=== PATIENT | female | born 1980 | race African-American/Black ===

== ENCOUNTER 2019-12-12 09:18 | Emergency (ER) | payer MEDICAID ==
[~2019-12-12] VITALS: Ht 160 cm; Wt 113.4 kg
[2019-12-12] VITALS (7 sets, daily range): BP systolic 129–150; BP diastolic 79–92
[~2019-12-12 09:18] MED LIST: BACTRIM DS TAB1 EAC1 ORAL; BUSPAR10 MG ORAL; KEFLEX500 MG ORAL
[2019-12-12] MEDS ORDERED: Haloperidol 5mg/ml Inj IM ONE (09:30)
[2019-12-12] MEDS ORDERED: DiphenhydrAMINE 50mg/ml Inj IM ONE (09:30)
--- NOTE | 2019-12-12 09:32 | Emergency Room Report ---
History of Present Illness General Chief Complaint: Behavioral Complaint Source: Patient Present Illness HPI Patient presents emergency department today with complaint of altered mental status. Review of medical records show that this is happened to the patient in the past secondary to drug abuse. Apparently patient has had some life stressors this year and as result has not been acting well. Patient was noted to be closing herself in her room with bizarre behavior and possibility of paranoia and hallucinations. Police was contacted to evaluate patient and they placed the patient on [id number] and brought the patient here for further evaluation. On arrival patient was combative apparently patient was agitated and seeing was given Ativan for sedation. Patient is much more cooperative with police presence but is still appeared to be agitated. No other complaints are noted. Symptoms noted to be moderate to severe. Patient is refusing to provide any history. All the history was obtained from the paramedics and the police officers. No other modifying factors. No other associated signs and symptoms. No other complaints were noted. 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 Reviewed Nursing Documentation: PMH: Agreed; PSxH: Agreed Nursing Documentation-PMH Past Medical History: No Stated History Review of Systems All Other Systems: negative except mentioned in HPI - Unable to fully assess because patient is refusing answer questions. Physical Exam Vital Signs Date Time Temp Pulse Resp B/P (MAP) Pulse Ox O2 Delivery O2 Flow Rate FiO2 12/12/19 09:14 97.7 88 17 150/90 (110) 98 Room Air Sp02 EP Interpretation: reviewed, normal General Appearance: alert, non-toxic, obese, other - Not cooperative and agitated. Head: atraumatic Eyes: bilateral eye normal inspection ENT: normal ENT inspection, hearing grossly normal, normal voice Neck: normal inspection, full range of motion, supple Respiratory: normal inspection, lungs clear, normal breath sounds, no respiratory distress, no retraction, no wheezing Cardiovascular #1: regular rate, rhythm, no edema Gastrointestinal: normal inspection, normal bowel sounds, non tender, soft, no guarding, no hernia Genitourinary: no CVA tenderness Musculoskeletal: back normal, normal range of motion, other - Left lower extremity chronic venous stasis ulcer. Neurologic: alert, responsive, speech normal, normal inspection Psychiatric: depressed affect, other - Poor judgment Skin: other - Left lower extremity chronic venous stasis ulcer Procedures Critical Care Time Critical Care Time Patient had a critical medical condition which untreated could potentially result in life or limb threatening injury. Total critical care time excluding procedures was approximately 45 minutes. Medical Decision Making Diagnostic Impression: Primary Impression: Psychosis ER Course Patient presents emergency department today with abnormal behavior. Differential considerations include electrolyte abnormality, drug abuse, alcohol abuse, worsening psychosis, suicidal ideation, worsening depression just to name a few. Given the severity of the patient's presentation I felt this is a highly complex patient. This patient required extensive workup. Patient laboratory workup was negative. Patient was evaluated by the pet team. Patient is medically cleared. Patient require admission to a psychiatric unit for treatment of her for condition. Because of patient's agitation patient require sedation and control of her acute psychosis. Patient was given Haldol and Benadryl with significant improvement symptoms. Patient had received Versed prior to arrival by paramedics. Labs Test 12/12/19 10:00 12/12/19 12:40 White Blood Count 8.9 K/UL (4.8-10.8) Red Blood Count 4.73 M/UL (4.20-5.40) Hemoglobin 12.2 G/DL (12.0-16.0) Hematocrit 37.3 % (37.0-47.0) Mean Corpuscular Volume 79 FL (80-99) Mean Corpuscular Hemoglobin 25.9 PG (27.0-31.0) Mean Corpuscular Hemoglobin Concent 32.7 G/DL (32.0-36.0) Red Cell Distribution Width 13.8 % (11.6-14.8) Platelet Count 272 K/UL (150-450) Mean Platelet Volume 5.3 FL (6.5-10.1) Neutrophils (%) (Auto) 74.6 % (45.0-75.0) Lymphocytes (%) (Auto) 14.5 % (20.0-45.0) Monocytes (%) (Auto) 6.0 % (1.0-10.0) Eosinophils (%) (Auto) 3.4 % (0.0-3.0) Basophils (%) (Auto) 1.6 % (0.0-2.0) Sodium Level 138 MMOL/L (136-145) Potassium Level 3.6 MMOL/L (3.5-5.1) Chloride Level 103 MMOL/L (98-107) Carbon Dioxide Level 29 MMOL/L (21-32) Anion Gap 6 mmol/L (5-15) Blood Urea Nitrogen 11 mg/dL (7-18) Creatinine 1.1 MG/DL (0.55-1.30) Estimat Glomerular Filtration Rate > 60 mL/min (>60) Glucose Level 83 MG/DL (74-106) Calcium Level 9.3 MG/DL (8.5-10.1) Total Bilirubin 0.4 MG/DL (0.2-1.0) Aspartate Amino Transf (AST/SGOT) 20 U/L (15-37) Alanine Aminotransferase (ALT/SGPT) 17 U/L (12-78) Alkaline Phosphatase 72 U/L (46-116) Total Protein 7.9 G/DL (6.4-8.2) Albumin 3.3 G/DL (3.4-5.0) Globulin 4.6 g/dL Albumin/Globulin Ratio 0.7 (1.0-2.7) Salicylates Level 2.1 ug/mL (2.8-20) Acetaminophen Level < 3 MCG/ML (10-30) Serum Alcohol < 2 mg/dL Urine Color Yellow Urine Appearance Slightly cloudy Urine pH 6 (4.5-8.0) Urine Specific [place] 1.025 (1.005-1.035) Urine Protein 1+ (NEGATIVE) Urine Glucose (UA) Negative (NEGATIVE) Urine Ketones 3+ (NEGATIVE) Urine Blood 2+ (NEGATIVE) Urine Nitrite Negative (NEGATIVE) Urine Bilirubin Negative (NEGATIVE) Urine Urobilinogen Normal MG/DL (0.0-1.0) Urine Leukocyte Esterase 1+ (NEGATIVE) Urine RBC 2-4 /HPF (0 - 2) Urine WBC 2-4 /HPF (0 - 2) Urine Squamous Epithelial Cells Moderate /LPF (NONE/OCC) Urine Bacteria Few /HPF (NONE) Urine Mucus Few /LPF (NONE/OCC) Urine HCG, Qualitative Negative (NEGATIVE) Urine Opiates Screen Negative (NEGATIVE) Urine Barbiturates Screen Negative (NEGATIVE) Phencyclidine (PCP) Screen Negative (NEGATIVE) Urine Amphetamines Screen Positive (NEGATIVE) Urine Benzodiazepines Screen Positive (NEGATIVE) Urine Cocaine Screen Negative (NEGATIVE) Urine Marijuana (THC) Screen Negative (NEGATIVE) Last Vital Signs Date Time Temp Pulse Resp B/P (MAP) Pulse Ox O2 Delivery O2 Flow Rate FiO2 12/12/19 09:14 97.7 88 17 150/90 (110) 98 Room Air Status: improved Disposition: PSYCH HOSP/UNIT Condition: Serious Jin aJson MD Dec 12, 2019 09:32
[2019-12-12 10:28] LABS: BASOPHILS % (AUTO) 1.6 % (0.0-2.0); EOSINOPHILS % (AUTO) 3.4 % (0.0-3.0); HEMATOCRIT 37.3 % (37.0-47.0); HEMOGLOBIN 12.2 G/DL (12.0-16.0); LYMPHOCYTES % (AUTO) 14.5 % (20.0-45.0); MEAN CORPUSCULAR VOLUME 79 FL (80-99); NEUTROPHILS % (AUTO) 74.6 % (45.0-75.0); PLATELET COUNT 272 K/UL (150-450); RED BLOOD COUNT 4.73 M/UL (4.20-5.40); RED CELL DISTRIBUTION WIDTH 13.8 % (11.6-14.8); WHITE BLOOD COUNT 8.9 K/UL (4.8-10.8)
[2019-12-12 11:01] LABS: ANION GAP 6 mmol/L (5-15); BLOOD UREA NITROGEN 11 mg/dL (7-18); CALCIUM 9.3 MG/DL (8.5-10.1); CARBON DIOXIDE 29 MMOL/L (21-32); CHLORIDE 103 MMOL/L (98-107); CREATININE 1.1 MG/DL (0.55-1.30); POTASSIUM 3.6 MMOL/L (3.5-5.1); SODIUM 138 MMOL/L (136-145)
[2019-12-12 11:07] LABS: ALANINE AMINOTRANSFERASE 17 U/L (12-78); ALBUMIN 3.3 G/DL (3.4-5.0); ALBUMIN/GLOBULIN RATIO 0.7 (1.0-2.7); ALKALINE PHOSPHATASE 72 U/L (46-116); ASPARTATE AMINO TRANSFERASE 20 U/L (15-37); BILIRUBIN,TOTAL 0.4 MG/DL (0.2-1.0)
[2019-12-12 12:48] LABS: APPEARANCE,URINE SLIGHTLY CLOUDY; BILIRUBIN, URINE NEGATIVE (NEGATIVE); GLUCOSE, URINE (UA) NEGATIVE (NEGATIVE); KETONES,URINE 3+ (NEGATIVE); LEUKOCYTE ESTERASE ,URINE 1+ (NEGATIVE); NITRITE,URINE NEGATIVE (NEGATIVE); PH,URINE 6 (4.5-8.0); PROTEIN,URINE 1+ (NEGATIVE); UROBILINOGEN,URINE NORMAL MG/DL (0.0-1.0)
[2019-12-12 12:50] LABS: COLOR,URINE YELLOW
[2019-12-12] MEDS ORDERED: HYDROcodone/Acetamin 5/325 tab ORAL ONE (20:00)
[2019-12-13 01:26] VITALS: BP 139/89
[2019-12-13 03:40] VITALS: BP 129/81
[2019-12-13 04:42] VITALS: BP 123/83
== END 2019-12-13 03:46 ==
LOC: EDBD 09:18 → EMR 09:40
DX: F29 Unspecified psychosis not due to a substance or known physiological condition (principal); F15.10 Other stimulant abuse, uncomplicated; F13.10 Sedative, hypnotic or anxiolytic abuse, uncomplicated; Z88.0 Allergy status to penicillin
CPT/HCPCS: 36415; 80053; 80307; 81003; 81025; 85025; 96360; 96372; G0480; G0481; J1200; J1630; J7030; U0002; Z7502; 99285